=== PATIENT | female | born 1990 ===

== ENCOUNTER 2022-06-03 11:45 | Outpatient (CLI) | payer OTHER ==
[2022-06-03 12:39] LABS: Creatinine,Urine Random 82.4 mg/dL; Protein/Creatinine Ratio,Urine 0.109
[2022-06-03 14:30] VITALS: BP 148/84; PULSE 85; RESP 18; TEMP 97
--- NOTE | 2022-06-19 08:09 | P.MSEPDOC ---
Presenting Problems - Arrival Data Date of Arrival on Unit: 06/03/22 Time of Arrival on Unit: 11:45 Mode of Transport: EMS - Complaint OB-Reason for Admission/Chief Complaint: PIH Medical History - Information : 7 Para: 5 Term: 5 : 0 Abortions: Spontaneous or Elective: 1 Number of Living Children: 5 - Gestational Age Gestational Age by GERA (wks/days): 35 Weeks and 6 Days - History Comment: PT DENIES COMPLICATIONS WITH THIS BUT STATES HAD ELEVATED BLOOD PRESSURE WITH OTHER PREGNANCIES Review of Systems - Review of Systems Constitutional: No problems Breast: No problems ENT: No problems Cardiovascular: No problems Respiratory: No problems Gastrointestinal: No problems Genitourinary: No problems Musculoskeletal: No problems Neurological: No problems Skin: No problems Vital Signs - Temperature Temperature: 97.0 F Temperature Source: Temporal Artery Scan - Pulse Right Pulse Oximetery Pulse Rate: 85 Pulse Assessment Method: Pulse Oximetry - Respirations Respiratory Rate: 18 Oxygen Delivery Method: Room Air O2 Sat by Pulse Oximetry: 98 - Blood Pressure Right Arm Blood Pressure: 148/84 Blood Pressure Mean: 105 Blood Pressure Source: Automatic Cuff Medical Screen Scoring - Assessment - Baby A Baseline FHR: 120 Heart Rate - NICHD Category: Category I (Normal) NST: Reactive Physician Notification - Physician Notified Physician Notified Date: 06/03/22 Physician Notified Time: 11:55 Physician: Na Hall New Order Received: Yes - Notification Comment Comment: notified of blood pressures, order received for protein creat ratio, report called back to after urine lab results back, order to discharge patient home Maternal Triage Index - Maternal Triage Index Presenting for scheduled procedure w/no complaint: No - Stat/Priority 1 Stat Priority 1: No - Urgent/Priority 2 Urgent Priority 2: Yes Provider Notified: Na Hall Provider Notified Time: 11:55 Criteria Met for Priority 2: initial BP 148/84, repeat BPs 127/83, 123/71, 130/68, 125/66, 126/70, 136/77,128/80 Disposition - Disposition OB Disposition: Discharge to home Discharge Date: 06/03/22 Discharge Time: 13:13 I agree with the RN Medical Screening Exam: Yes Case reviewed; plan agreed upon as documented in EMR&OBIX.: Yes Diagnosis: rule out gestational hypertension
== END 2022-06-03 13:13 | disposition home or self-care (01) ==
LOC: FBPOP 11:45
PROVIDERS: ATTEND Obstetrics & Gynecology
DX: O16.3 Unspecified maternal hypertension, third trimester (principal); Z3A.35 35 weeks gestation of pregnancy
CPT/HCPCS: 59025; 82570; 84156; G0463; 99215